=== PATIENT | male | born 1970 ===

== ENCOUNTER 2025-07-10 06:00 | Day surgery (SDC) | payer OTHER ==
[2025-07-06 09:48] VITALS: BP 130/86
[2025-07-06 09:57] LABS: URINE APPEARANCE Clear; URINE BILIRRUBIN Negative (NEGATIVE); URINE BLOOD Negative; URINE COLOR Yellow; URINE KETONE Negative (NEGATIVE); URINE LEUKOCYTE Negative; URINE NITRATE Negative; URINE PROTEIN Negative (NEGATIVE); URINE UROBILINOGEN 1.0 E.U./dl
[2025-07-06 10:02] LABS: URINE BACTERIA 4.7 uL (0.0-1933); URINE EPITHELIAL CELLS 1.9 uL (0.0-38.8); URINE RBC 3.8 uL (0.0-20.8); URINE WBC 4.1 uL (0.0-23.2)
[2025-07-06 10:09] LABS: URINE CAST 0.00 uL (0.0-1.40); URINE GLUCOSE 100 MG/DL (NEGATIVE)
[2025-07-06 10:13] LABS: BASO % 1.2 % (0.1-1.2); EOS # 0.24 (0.04-0.54); EOS % 4.6 % (0.7-7.0); LYMPH # 1.85 (1.18-3.74); LYMPH % 35.6 % (19.3-53.1); MEAN PLATELET VOLUME 10.10 fl (9.4-12.4); MONO # 0.47 (0.24-0.82); MONO % 9.1 % (4.7-12.5); NEUT # 2.55 (1.56-6.13); NEUT % 49.1 % (34.0-71.1); RED CELL DISTRIBUTION WIDTH 12.2 % (11.6-14.4)
[2025-07-06 10:45] LABS: INR 1.01
[2025-07-06 10:46] LABS: ALT/SGPT 37.0 U/L (12-78); AST/SGOT 19.0 U/L (15-37); BILIRUBIN TOTAL 1.63 mg/dL (0.3-1.2); BUN CREA RATIO 14.0 (7.0-25.0); CREATININE SERUM 0.98 mg/dL (0.70-1.30); GFR 79.41; GLOBULINA 3.2 G/DL (2.4-3.5); GLUCOSE FASTING 99.0 mg/dL (65-100); OSMOLALITY SERUM 280.0 MOSM/KG (275-295)
[~2025-07-10] VITALS: Ht 165.1 cm; Wt 72.6 kg
[2025-07-10] MEDS ORDERED: CEFAZOLIN SODIUM 1,000 MG VIAL ONE ×2 (07:18→07:22)
[2025-07-10] MEDS ORDERED: BUPIVACAINE HCL/Mpf 0.5% 10ML VIAL ONE (07:18)
[2025-07-10] MEDS ORDERED: SUGAMMADEX SODIUM 200 MG/2 ML VIAL IV ONE (09:27)
== END 2025-07-10 13:20 | disposition home or self-care (01) ==
LOC: CIR.AMB 06:00
PROVIDERS: ATTEND Surgery
DX: K40.90 Unilateral inguinal hernia, without obstruction or gangrene, not specified as recurrent (principal); Z88.6 Allergy status to analgesic agent; Z91.013 Allergy to seafood
CPT/HCPCS: 49650; C1781; S2900